=== PATIENT | male | born 1950 | race Caucasian/White ===

== ENCOUNTER → 2017-01-02 | Outpatient (CLI) | payer MEDICARE, BC ==
[~2017-01-02] MED LIST: GLUCOSAMINE SU500 M2 PO; OMEGA-31 SGL PO; TENORMIN 5050 MG/TAB PO; XALATAN EYE DROPS OU
== END ==
LOC: COL.RAD 09:33
DX: Z13.6 Encounter for screening for cardiovascular disorders (principal)

== ENCOUNTER 2019-05-08 08:32 | Inpatient (IN) | payer MEDICARE, BC ==
[~2019-05-08] VITALS: Ht 175.3 cm; Wt 90.8 kg
[2019-07-06] VITALS (11 sets, daily range): BP systolic 108–138; BP diastolic 54–78; PULSE 51–104; TEMP 97.9–98.7
[2019-07-06] MEDS ORDERED: ASPIRIN 81M81 MG/TA2 PO (03:04)
[2019-07-06] MEDS ORDERED: PROSCAR 5MG5 MG PO (03:05)
[2019-07-06] MEDS ORDERED: FLOMAX 0.40.4 MG/CAP PO (03:06)
[2019-07-06] MEDS ORDERED: BACTRIM DS 8001 TAB PO (03:10)
[2019-07-07 00:14] VITALS: BP 109/53; PULSE 71; TEMP 99.9
[2019-07-07 03:07] VITALS: BP 117/61; PULSE 59; TEMP 99.5
[2019-07-07 07:36] LABS: HEMOGLOBIN 12.5 g/dl (13.5-18.0)
[2019-07-07 07:47] VITALS: BP 139/69; PULSE 68; TEMP 100.3
[2019-07-07 11:22] VITALS: BP 129/64; PULSE 60; TEMP 98.3
[2019-07-07 16:25] VITALS: BP 114/69; PULSE 63; TEMP 98.6
[2019-07-07 20:55] VITALS: BP 136/74; PULSE 65; TEMP 98.5
[2019-07-08 04:35] VITALS: BP 136/71; PULSE 70; TEMP 98.5
[2019-07-08] MEDS ORDERED: ASPI325T6 PO (07:04)
[2019-07-08] MEDS ORDERED: NORCO 325 MG-7.1 TAB PO (07:04)
[2019-07-08] MEDS ORDERED: ROXICODONE 55 MG/TAB PO (07:05)
[2019-07-08] MEDS ORDERED: TYLENOL 500MG500 MG PO (07:06)
[2019-07-08] MEDS ORDERED: COLACE 100100 MG/CAP PO (07:07)
[2019-07-08 08:40] VITALS: BP 149/78; PULSE 83; TEMP 98.2
[2019-07-08 12:42] VITALS: BP 119/76; PULSE 81; TEMP 98.2
== END 2019-07-08 14:15 | disposition home or self-care (01) | DRG 470 ==
LOC: JCC 07-06 05:15 → EDSTATUS 07-06 07:30 → SDCO 07-06 07:30 → JCC 07-08 14:15
PROVIDERS: ADMIT Orthopaedic Surgery
PROC: 0SRC0J9 Replacement of Right Knee Joint with Synthetic Substitute, Cemented, Open Approach (ICD-10-PCS; principal; 2019-07-06 07:30)
DX: M17.11 Unilateral primary osteoarthritis, right knee (principal); Z98.49 Cataract extraction status, unspecified eye; H40.9 Unspecified glaucoma; Z72.0 Tobacco use
CPT/HCPCS: A9284; C1776; J0690; J1885; J2250; J2405; J2704; J3010; J7030